=== PATIENT | female | born 1990 | race Caucasian/White ===

== ENCOUNTER → 2016-10-15 | Outpatient (CLI) | payer OTHER | LOC: NM 07:30 | DX: C73 Malignant neoplasm of thyroid gland (principal) | CPT/HCPCS: A9517 ==

== ENCOUNTER → 2016-10-17 | Outpatient (CLI) | payer OTHER | LOC: NM 13:46 | DX: C73 Malignant neoplasm of thyroid gland (principal) | CPT/HCPCS: 36415; 84432; 86800; A9517 ==